=== PATIENT | male | born 1950 | race Caucasian/White ===

== ENCOUNTER 2018-01-31 12:09 | Emergency (ER) | payer OTHER ==
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
[2018-01-31] MEDS ORDERED: OXYCODONE/APAP 5/325 TAB PO ONE (13:11)
[2018-01-31 13:35] VITALS: BP 151/100
== END 2018-01-31 13:32 | disposition home or self-care (01) ==
LOC: CED 12:09
DX: S43.401A Unspecified sprain of right shoulder joint, initial encounter (principal); S40.211A Abrasion of right shoulder, initial encounter; S80.211A Abrasion, right knee, initial encounter; R07.9 Chest pain, unspecified; I10 Essential (primary) hypertension; Z87.891 Personal history of nicotine dependence; V18.4XXA Pedal cycle driver injured in noncollision transport accident in traffic accident, initial encounter; Y92.9 Unspecified place or not applicable; Y93.9 Activity, unspecified; Y99.9 Unspecified external cause status
CPT/HCPCS: 71046-PO; 73030-PO